=== PATIENT | male | born 1950 | race Caucasian/White ===

== ENCOUNTER 2018-12-01 09:21 | Inpatient (IN) | payer MEDICARE ==
[~2018-12-01] VITALS: Ht 182.9 cm; Wt 117.4 kg
[~2018-12-01 09:21] MED LIST: METO50TA82 PO; SIMV20TA3 PO; WARF1TAB74 PO; WARF7.5T46 PO
[2018-12-01] MEDS ORDERED: BUPIVACAINE/PF-EPI 0.5% 1:200K ONE (10:19)
[2018-12-01 11:23] VITALS: BP 122/63
[2018-12-01] MEDS ORDERED: NEOSTIGMINE 1 MG/ML, 10ML ONE (11:30)
[2018-12-01] MEDS ORDERED: ROCURONIUM 10MG/ML,5ML ONE ×2 (11:30→13:31)
[2018-12-01] MEDS ORDERED: PROPOFOL 10 MG/ML, 20ML ONE (11:30)
[2018-12-01] MEDS ORDERED: CEFAZOLIN 1,000 MG ONE (11:30)
[2018-12-01] MEDS ORDERED: GLYCOPYRROLATE 0.2MG/1ML, 5ML ONE (11:30)
[2018-12-01] MEDS ORDERED: LACTATED RINGERS 1,000 ML IV SCH (11:35)
[2018-12-01 12:15] LABS: INTERNATIONAL NORMALIZED RATIO 1.19 (0.93-1.1); PROTHROMBIN TIME 12.5 Seconds (9.6-11.5)
[2018-12-01] MEDS ORDERED: FENTANYL PF 250 MCG/5ML ONE (12:39)
[2018-12-01] MEDS ORDERED: MIDAZOLAM 1 MG/ML, 2ML ONE (12:39)
[2018-12-01] MEDS ORDERED: PHENYLEPHRINE 10 MG/ML ONE (12:59)
[2018-12-01] MEDS ORDERED: PROMETHAZINE 12.5 MG SUPP PR PRN ×2 (13:00→16:00)
[2018-12-01] MEDS ORDERED: ACETAMINOPHEN 325 MG TABLET PO PRN (13:00)
[2018-12-01] MEDS ORDERED: PROMETHAZINE 25 MG/ML, 1ML IM PRN ×3 (13:00→16:00)
[2018-12-01] MEDS ORDERED: PROMETHAZINE 25 MG/ML, 1ML IV PRN (13:00)
[2018-12-01] MEDS ORDERED: ALBUTEROL SULFATE 2.5 MG/3 ML NPPB PRN (13:00)
[2018-12-01] MEDS ORDERED: ONDANSETRON ODT 8 MG PO PRN (13:00)
[2018-12-01] MEDS ORDERED: ONDANSETRON 2MG/ML, 2ML IV PRN (13:00)
[2018-12-01] MEDS ORDERED: PROMETHAZINE 25 MG SUPP PR PRN (13:00)
[2018-12-01] MEDS ORDERED: MORPHINE SULFATE 4 MG/ML, 1ML IVPush PRN (13:00)
[2018-12-01] MEDS ORDERED: MEPERIDINE/PF 25MG/0.5ML IVPush PRN (13:00)
[2018-12-01] MEDS ORDERED: HYDROmorphone 2 MG/ML, 1ML IVPush PRN (13:00)
[2018-12-01] MEDS ORDERED: OXYcodone 5 MG/5 ML ORAL.SOL UDC PO PRN (13:00)
[2018-12-01] MEDS ORDERED: LABETALOL 5MG/ML, 20ML IV PRN (13:00)
[2018-12-01] MEDS ORDERED: FENTANYL PF 100 MCG/2ML IV PRN (13:00)
[2018-12-01] MEDS ORDERED: SUGAMMADEX 200 MG/2 ML IVPush ONE (15:33)
[2018-12-01] MEDS ORDERED: ENALAPRILAT 1.25 MG/ML, 2ML IV PRN (16:00)
[2018-12-01] MEDS ORDERED: morphine SULFATE 10 MG/ML, 1ML IV PRN (16:00)
[2018-12-01] MEDS ORDERED: LORazepam 2 MG/ML, 1ML IV PRN (16:00)
[2018-12-01] MEDS ORDERED: DIPHENHYDRAMINE 50 MG/ML, 1ML IV PRN (16:00)
[2018-12-01] MEDS ORDERED: hydrALAzine 20 MG/ML, 1ML IV PRN (16:00)
[2018-12-01] MEDS ORDERED: FAMOTIDINE 20 MG TABLET PO SCH (16:00)
[2018-12-01] MEDS ORDERED: HYDROmorphone 2 MG/ML, 1ML ONE (16:08)
[2018-12-01] MEDS ORDERED: FENTANYL PF 100 MCG/2ML ONE (16:08)
[2018-12-01] MEDS: HYDROcodone/APAP 5/325 TABLET PO PRN ×2 (18:15→19:26)
[2018-12-01] MEDS: ONDANSETRON 2MG/ML, 2ML IVPush PRN (18:15)
[2018-12-01] MEDS: LACTATED RINGERS 1,000 ML IV SCH (19:06)
[2018-12-01] MEDS: CEFAZOLIN PMX 2GM/50ML 50 ML IVPB SCH (19:06)
[2018-12-01] MEDS: FAMOTIDINE 20 MG/2 ML IV SCH (19:06)
[2018-12-01] MEDS: SIMVASTATIN 20 MG TABLET PO SCH (19:26)
[2018-12-02] MEDS: HYDROcodone/APAP 5/325 TABLET PO PRN ×4 (00:04→12:37)
[2018-12-02] MEDS: LACTATED RINGERS 1,000 ML IV SCH ×3 (01:24→21:35)
[2018-12-02] MEDS: CEFAZOLIN PMX 2GM/50ML 50 ML IVPB SCH (02:50)
[2018-12-02 04:00] VITALS: BP 134/70
[2018-12-02] MEDS: FAMOTIDINE 20 MG/2 ML IV SCH ×2 (05:14→16:23)
[2018-12-02] MEDS: METOPROLOL TARTRATE 50 MG TABLET PO SCH (08:20)
[2018-12-02 09:22] LABS: BASOPHILS # (AUTO) 0.01 x10^3/uL (0-0.1); BASOPHILS % (AUTO) 0 % (0-1); EOSINOPHILS # (AUTO) 0.07 x10^3/uL (0-0.4); EOSINOPHILS % (AUTO) 1 % (1-7); LYMPHOCYTES # (AUTO) 1.29 x10^3/uL (1-3.4); LYMPHOCYTES % (AUTO) 12 % (22-44); MD NO; MEAN CORPUSCULAR HEMOGLOBIN 30.4 pg (27.5-34.5); MEAN CORPUSCULAR HGB CONC 33.5 g/dL (33.2-36.2); MEAN CORPUSCULAR VOLUME 90.7 fL (81-97); MEAN PLATELET VOLUME 8.3 fL (7.4-10.4); MONOCYTES # (AUTO) 0.87 x10^3/uL (0.2-0.8); MONOCYTES % (AUTO) 8 % (2-9); NEUTROPHILS # (AUTO) 8.64 x10^3/uL (1.8-6.8); NEUTROPHILS % (AUTO) 80 % (42-75); PLATELET COUNT 170 x10^3/uL (130-400); RED BLOOD COUNT 5.03 x10^6/uL (4.38-5.82); RED CELL DISTRIBUTION WIDTH 14.1 % (9.4-14.8)
[2018-12-02 09:30] LABS: ALBUMIN 3.4 g/dL (3.4-5.0); ANION GAP 5 mmol/L (5-15); CALCIUM 8.8 mg/dL (8.5-10.1); CHLORIDE 108 mmol/L (98-107); CREATININE 0.58 mg/dL (0.7-1.3)
[2018-12-02] MEDS: ONDANSETRON 2MG/ML, 2ML IVPush PRN (11:24)
[2018-12-02] MEDS: ENOXAPARIN 30 MG/0.3 ML SQ SCH (12:38)
[2018-12-02] MEDS: SIMVASTATIN 20 MG TABLET PO SCH (21:31)
[2018-12-03] MEDS: ENOXAPARIN 30 MG/0.3 ML SQ SCH ×2 (00:05→13:21)
[2018-12-03] MEDS: HYDROcodone/APAP 5/325 TABLET PO PRN (04:08)
[2018-12-03] MEDS: FAMOTIDINE 20 MG/2 ML IV SCH ×2 (04:09→17:52)
[2018-12-03 04:15] VITALS: BP 117/62
[2018-12-03] MEDS: LACTATED RINGERS 1,000 ML IV SCH ×2 (08:26→17:52)
[2018-12-03] MEDS: METOPROLOL TARTRATE 50 MG TABLET PO SCH (09:14)
[2018-12-03] MEDS: KETOROLAC 30 MG/1 ML IVPush PRN ×2 (10:21→17:52)
[2018-12-03 19:46] VITALS: BP 161/85
[2018-12-03 20:23] VITALS: BP 130/73
[2018-12-03] MEDS: SIMVASTATIN 20 MG TABLET PO SCH (20:25)
[2018-12-04] MEDS: ENOXAPARIN 30 MG/0.3 ML SQ SCH ×2 (00:03→12:25)
[2018-12-04 02:03] VITALS: BP 146/61
[2018-12-04] MEDS: LACTATED RINGERS 1,000 ML IV SCH ×3 (04:06→23:34)
[2018-12-04] MEDS: FAMOTIDINE 20 MG/2 ML IV SCH ×2 (04:17→16:00)
[2018-12-04 07:59] VITALS: BP 142/59
[2018-12-04] MEDS: METOPROLOL TARTRATE 50 MG TABLET PO SCH (09:10)
[2018-12-04 14:24] VITALS: BP 114/74
[2018-12-04 18:29] VITALS: BP 125/62
[2018-12-04] MEDS: SIMVASTATIN 20 MG TABLET PO SCH (19:54)
[2018-12-04] MEDS: FAMOTIDINE 20 MG TABLET PO SCH (19:54)
[2018-12-05] MEDS: ENOXAPARIN 30 MG/0.3 ML SQ SCH (00:58)
[2018-12-05 01:31] VITALS: BP 126/78
[2018-12-05 05:47] LABS: CREATININE 0.58 mg/dL (0.7-1.3)
[2018-12-05 07:27] VITALS: BP 110/62
[2018-12-05] MEDS: FAMOTIDINE 20 MG TABLET PO SCH (08:30)
[2018-12-05] MEDS: LACTATED RINGERS 1,000 ML IV SCH (08:30)
[2018-12-05] MEDS: METOPROLOL TARTRATE 50 MG TABLET PO SCH (08:30)
[2018-12-05] MEDS ORDERED: ACET325T14 PO (10:10)
[2018-12-05] MEDS ORDERED: IBUP-1223 PO (10:11)
[2018-12-05] MEDS ORDERED: OXYC5CAP2 PO (10:11)
== END 2018-12-05 11:30 | disposition home or self-care (01) | DRG 164 ==
LOC: ORIP 10:47 → CCU 17:14 → 4NOR 12-03 18:30
PROVIDERS: ADMIT Thoracic Surgery (Cardiothoracic Vascular Surgery); ATTEND Thoracic Surgery (Cardiothoracic Vascular Surgery)
PROC: 8E0W4CZ Robotic Assisted Procedure of Trunk Region, Percutaneous Endoscopic Approach (ICD-10-PCS; 2018-12-01)
PROC: 0BUT4JZ Supplement Diaphragm with Synthetic Substitute, Percutaneous Endoscopic Approach (ICD-10-PCS; principal; 2018-12-01 13:00)
PROC: 5A09357 Assistance with Respiratory Ventilation, Less than 24 Consecutive Hours, Continuous Positive Airway Pressure (ICD-10-PCS; 2018-12-03)
PROC: 5A09357 Assistance with Respiratory Ventilation, Less than 24 Consecutive Hours, Continuous Positive Airway Pressure (ICD-10-PCS; 2018-12-05)
DX: Q79.0 Congenital diaphragmatic hernia (principal); J98.11 Atelectasis; J93.9 Pneumothorax, unspecified; I42.9 Cardiomyopathy, unspecified; I48.91 Unspecified atrial fibrillation; G47.33 Obstructive sleep apnea (adult) (pediatric); J44.9 Chronic obstructive pulmonary disease, unspecified; I11.0 Hypertensive heart disease with heart failure; I50.9 Heart failure, unspecified; E78.5 Hyperlipidemia, unspecified; E78.00 Pure hypercholesterolemia, unspecified; Y92.89 Other specified places as the place of occurrence of the external cause; Z79.899 Other long term (current) drug therapy; Z79.01 Long term (current) use of anticoagulants
CPT/HCPCS: 36415; 71045; 74018; 80048; 82040; 82565; 85025; 85610; 87081; 93005; G0378; J0690; J1650; J1885; J2250; J2405; J2704; J2710; J3010; J3490; C1781; J2370; J7120

== ENCOUNTER → 2020-03-16 | Outpatient (CLI) | payer MEDICARE ==
[~2020-03-16] MED LIST changes: +ACET325T14 PO; +ATOR20TA37 PO; +IBUP-1223 PO; +LEVO75TA5 PO; +OXYC5CAP2 PO; +RIVA15TA PO; +SIMV20TA19 PO; -SIMV20TA3 PO; +SOTA80TA PO
== END | disposition home or self-care (01) ==
LOC: STAR 09:45
PROVIDERS: ATTEND Thoracic Surgery (Cardiothoracic Vascular Surgery)
DX: Z01.818 Encounter for other preprocedural examination (principal); Z11.59 Encounter for screening for other viral diseases; I44.4 Left anterior fascicular block
CPT/HCPCS: 93005; U0001

== ENCOUNTER 2020-03-21 08:49 | Inpatient (IN) | payer MEDICARE ==
[~2020-03-21] VITALS: Ht 182.9 cm; Wt 125.2 kg
[~2020-03-21 08:49] MED LIST changes: +BUPIVACAINE/PF-EPI 0.5% 1:200K ONE
[2020-03-21] MEDS ORDERED: LACTATED RINGERS 1,000 ML IV SCH (09:22)
[2020-03-21 09:24] VITALS: BP 151/87
[2020-03-21 09:26] VITALS: BP 151/87
[2020-03-21] MEDS ORDERED: CHLORHEXIDINE 15 ML UDC MM ONE (09:30)
[2020-03-21] MEDS ORDERED: CHLORHEXIDINE 15 ML UDC ONE (09:31)
[2020-03-21] MEDS ORDERED: FENTANYL PF 250 MCG/5ML ONE (10:30)
[2020-03-21] MEDS ORDERED: MIDAZOLAM 1 MG/ML, 2ML ONE (10:30)
[2020-03-21] MEDS ORDERED: PROPOFOL 10 MG/ML, 20ML ONE ×2 (10:31)
[2020-03-21] MEDS ORDERED: CEFAZOLIN 1,000 MG ONE ×3 (10:31→11:24)
[2020-03-21] MEDS ORDERED: HYDROmorphone 1 MG/ML, 1ML INJ IVPush PRN (11:00)
[2020-03-21] MEDS ORDERED: OXYcodone 5 MG/5 ML ORAL.SOL UDC PO PRN (11:00)
[2020-03-21] MEDS ORDERED: ONDANSETRON 2MG/ML, 2ML IVPush PRN (11:00)
[2020-03-21] MEDS ORDERED: PROMETHAZINE 25 MG/ML, 1ML IVPush PRN (11:00)
[2020-03-21] MEDS ORDERED: MEPERIDINE/PF 25MG/0.5ML IVPush PRN (11:00)
[2020-03-21] MEDS ORDERED: FAMOTIDINE 20 MG TABLET ONE (11:03)
[2020-03-21] MEDS ORDERED: ACETAMINOPHEN 500 MG TABLET ONE (11:04)
[2020-03-21] MEDS ORDERED: OXYcodone IR 5MG TABLET ONE (11:04)
[2020-03-21] MEDS ORDERED: SUCCINYLCHOLINE 20 MG/ML, 10ML ONE (11:24)
[2020-03-21] MEDS ORDERED: DEXAMETHASONE 4 MG/ML, 1ML ONE (11:43)
[2020-03-21] MEDS ORDERED: ONDANSETRON 2MG/ML, 2ML ONE (11:43)
[2020-03-21] MEDS ORDERED: GLYCOPYRROLATE 0.2MG/1ML, 5ML ONE (11:48)
[2020-03-21] MEDS ORDERED: EPHEDRINE 50 MG/ML, 1ML ONE (11:49)
[2020-03-21] MEDS ORDERED: FENTANYL PF 100 MCG/2ML ONE (13:21)
[2020-03-21] MEDS ORDERED: OXYcodone 5 MG/5 ML ORAL.SOL UDC ONE (13:21)
[2020-03-21] MEDS ORDERED: FENTANYL PF 100 MCG/2ML IV PRN (14:00)
== END 2020-03-21 16:30 | disposition home or self-care (01) | DRG 858 ==
LOC: ORIP 08:49 → EDSTATUS 10:30
PROVIDERS: ADMIT Surgery; ATTEND Surgery
PROC: 0WUF0JZ Supplement Abdominal Wall with Synthetic Substitute, Open Approach (ICD-10-PCS; 2020-03-21)
PROC: 0DTJ0ZZ Resection of Appendix, Open Approach (ICD-10-PCS; 2020-03-21)
PROC: 0DNW0ZZ Release Peritoneum, Open Approach (ICD-10-PCS; principal; 2020-03-21 11:30)
DX: T81.41XA Infection following a procedure, superficial incisional surgical site, initial encounter (principal); K43.2 Incisional hernia without obstruction or gangrene; E66.01 Morbid (severe) obesity due to excess calories; G47.33 Obstructive sleep apnea (adult) (pediatric); M19.90 Unspecified osteoarthritis, unspecified site; I48.91 Unspecified atrial fibrillation; Z82.61 Family history of arthritis; Z80.6 Family history of leukemia; Z79.01 Long term (current) use of anticoagulants; Z79.899 Other long term (current) drug therapy; Z68.35 Body mass index [BMI] 35.0-35.9, adult; Y83.8 Other surgical procedures as the cause of abnormal reaction of the patient, or of later complication, without mention of misadventure at the time of the procedure; Y92.89 Other specified places as the place of occurrence of the external cause
CPT/HCPCS: 88304; J0690; J1100; J2250; J2405; J2704; J3010; J0330